=== PATIENT | female | born 1955 | race Caucasian/White ===

== ENCOUNTER → 2019-08-29 | Outpatient (CLI) | payer BC | LOC: LAB.O 14:11 | PROVIDERS: ATTEND Family Medicine | DX: I10 Essential (primary) hypertension (principal); R53.83 Other fatigue; E78.5 Hyperlipidemia, unspecified ==

== ENCOUNTER → 2019-09-20 | Outpatient (CLI) | payer BC ==
--- NOTE | 2019-09-21 16:06 | MAM ---
EXAM DESCRIPTION: 3D Screening BILATERAL : Digital Mammography. CLINICAL HISTORY: 64 years Female SCREENING . No complaints. No personal or family history of breast cancer. Menarche age 14. Childbirth none. Hysterectomy age 38. Currently on HRT. Lifetime risk of developing breast cancer (Tyrer-Cuzick model)(%): 6.6. COMPARISON: Baseline study at this facility. Prior studies not yet available. TECHNIQUE: Bilateral CC and MLO projection full-field images, digital tomosynthesis mammographic technique. Bilateral digital 2-D full-field MLO images. CAD available for 2-D images. FINDINGS: The breast parenchymal density pattern is: Almost entirely fatty. No skin thickening or nipple retraction. Bilateral benign solitary parenchymal calcifications. Bilateral axillary lymph nodes. Focal asymmetry versus architectural distortion subcutaneous upper outer quadrant of the middle third of the right breast. No focal, stellate mass or density, focal asymmetry , and no suspicious microcalcifications left breast. IMPRESSION: BI-RADS CATEGORY: 0 - INCOMPLETE- Need prior mammograms for comparison. FOLLOW-UP: Comparison with prior examination(s) when available. Written communication explaining the results and follow-up will be mailed to the patient and referring care provider. Electronically signed by: Valentín Diaz MD 09/21/2019 4:05 PM [facility]
== END ==
LOC: MAMMO 11:30
PROVIDERS: ATTEND Family Medicine
DX: Z12.31 Encounter for screening mammogram for malignant neoplasm of breast (principal)

== ENCOUNTER → 2019-10-19 | Outpatient (CLI) | payer BC ==
--- NOTE | 2019-10-23 10:10 | CT ---
Procedure: CT LUNG SCREENING Exam Date: October 19, 2019 Ordering Provider: Jeremiah Foster Clinical Indication: TOBACCO USE . Current cigarette smoker. 25 pack years. This patient meets eligibility criteria for low-dose CT lung cancer screening. Comparison: None. Technique: Using a multislice scanner, sequential helical axial imaging was obtained in the thorax, 2.5 mm thickness, 2.5 mm separation, from the level of the thoracic inlet through the lung bases without IV contrast. A low dose protocol was utilized for BMI greater than than 30: BMI: 30.7. CTDI: 2.92 mGy. 120. kVp. 75 mA. DLP 99.33 mGy-cm. 2D sagittal and coronal reconstructed images, 6.0 mm thickness, were obtained. This exam was performed according to our departmental dose optimization program which includes use of automated exposure control, adjustment of the mA and/or kV according to patient size and/or use of iterative reconstruction technique. Nodule measurements under 10 mm are given as mean value of 3 axes diameters. FINDINGS: Lungs and large airways: Lungs are well-inflated. Sporadic thickened septa bilaterally. No abnormal nodules and no masses. No focal infiltrates. Pleura and space: Negative. Mediastinum and michael: evaluation limited by low dose technique and lack of IV contrast. Unremarkable Heart and great vessels: Mild cardiomegaly. Calcification in the left main coronary artery. Chest wall, lower neck, axillae: Evaluation also limited by same factors as described above. Normal size axillary lymph nodes. Heterogeneous thyroid gland. Upper abdomen: Evaluation limited by low-dose technique. Partial gastrectomy with surgical hardware and small hiatal hernia. Gallbladder partially visualized. Splenic calcifications. No free air or free fluid. Osseous structures: Evaluation limited by low dose MIP technique. Minimal spondylosis in the lower mid levels. Arthrosis in the glenohumeral and sternoclavicular joints. IMPRESSION: No abnormal nodules and no masses. No focal infiltrates. Early senescent changes. Mild cardiomegaly. Calcification in the left main coronary artery.. [facility] Best Practice Recommendations: please see below for Lung RADS category and FOLLOW-UP.* *Lung RADS category Category 1S - No nodule or definitely benign nodules (probability of malignancy less than 1%). Follow-up: Continue annual screening with Low Dose Chest CT in 12 months. 2. Lung RADS Modifier S - Clinically Significant or Potentially Clinically Significant Findings (non lung cancer). Cardiomegaly is nonspecific finding. Electronically signed by: Valentín Diaz MD 10/23/2019 10:08 AM [facility]
== END ==
LOC: CT 13:43
PROVIDERS: ATTEND Family Medicine
DX: Z87.891 Personal history of nicotine dependence (principal); I10 Essential (primary) hypertension; I51.7 Cardiomegaly; I25.10 Atherosclerotic heart disease of native coronary artery without angina pectoris
CPT/HCPCS: 93005; G0297

== ENCOUNTER → 2020-01-02 | Outpatient (CLI) | payer BC ==
--- NOTE | 2020-01-02 12:03 | RAD ---
EXAM DESCRIPTION: Pelvis CLINICAL HISTORY: 64 years Female, PAIN IN RIGHT HIP COMPARISON: None. FINDINGS: There is no acute fracture or malalignment. Mild right hip joint space narrowing, the hip and sacroiliac joints are otherwise unremarkable. The pubic symphysis is anatomically aligned. There is no focal bone lesion or suspicious soft tissue abnormality. IMPRESSION: Mild degenerative changes in the right hip, otherwise unremarkable exam. Electronically signed by: Jude Maya MD 01/02/2020 12:01 PM CDT
--- NOTE | 2020-01-02 12:04 | RAD ---
EXAM DESCRIPTION: Hip,Right 2 Views CLINICAL HISTORY: 64 years Female, PAIN IN RIGHT HIP COMPARISON: None. FINDINGS: Two views of the right hip show no acute fracture or malalignment. [id number] right hip joint space narrowing, no focal bone lesion. No soft tissue abnormality. IMPRESSION: [id number] degenerative changes in the right hip. Electronically signed by: Jude Maya MD 01/02/2020 12:02 PM CDT
--- NOTE | 2020-01-02 12:05 | RAD ---
EXAM DESCRIPTION: Knee,Right Complete CLINICAL HISTORY: 64 years Female, PAIN IN RIGHT KNEE COMPARISON: None. FINDINGS: Three views of the right knee show no acute fracture or malalignment. No joint space narrowing or joint effusion. Small osteophytes arise from the superior and inferior patellar poles. IMPRESSION: Mild degenerative changes in the patellofemoral compartment, otherwise unremarkable exam. Electronically signed by: Jude Maya MD 01/02/2020 12:03 PM CDT
--- NOTE | 2020-01-02 12:05 | RAD ---
EXAM DESCRIPTION: Lumbar Spine,Flex/Ext CLINICAL HISTORY: 64 years Female, PAIN IN RIGHT HIP COMPARISON: None. FINDINGS: Flexion and extension views of the lumbar spine show no vertebral body fracture or subluxation. No dynamic instability. Degenerative disc disease at L5-S1 with less advanced degenerative changes elsewhere. IMPRESSION: Moderate to moderately advanced degenerative disc disease at L5-S1 with less advanced degenerative changes elsewhere in the lumbar spine. No dynamic instability. Electronically signed by: Jude Maya MD 01/02/2020 12:04 PM CDT
== END ==
LOC: RAD 10:05
PROVIDERS: ATTEND Family Medicine
DX: M17.11 Unilateral primary osteoarthritis, right knee (principal); M16.11 Unilateral primary osteoarthritis, right hip; M51.37 Other intervertebral disc degeneration, lumbosacral region

== ENCOUNTER → 2020-01-29 | Outpatient (CLI) | payer BC, OTHER ==
--- NOTE | 2020-01-30 10:31 | MRI ---
EXAM DESCRIPTION: Lumbar Spine w/o Contrast : Magnetic Resonance Imaging. CLINICAL HISTORY: low back pain COMPARISON: Lumbar spine flexion and extension January 02, 2020. TECHNIQUE: Multiplanar, multiple standard sequences, non contrast MRI, lumbar spine. FINDINGS: L5-S1: The disc is well visualized on axial T2 series 501, image 3. There is basically significantly decreased with moderate endplate reactive changes in the midline into the left of midline and disc spur complex posterolaterally encroaching on the right neural foramen and the right L5 nerve. Minimal posterior bulge. Degenerative hypertrophy of the posterior flavum ligaments and facet joints (canal elements) with AP canal diameter 10 mm. L4-L5: Disc desiccation with disc space preserved. Minimal posterior bulge. Degenerative hypertrophy of the canal elements more on the right. AP canal diameter 10 mm. Left mild foraminal narrowing and mild to moderate narrowing of the right foramen. L3-L4: Disc desiccation minimal with disc space preserved. Mild degenerative hypertrophy of the canal elements. AP canal diameter 11 mm. Bilateral foramina are patent. L2-L3: Normal signal in the disc with disc space preserved. Minimal degenerative hypertrophy of the canal elements. Mild canal narrowing. Bilateral foramina are patent. L1-L2: Disc desiccation anterior early endplate reactive changes with disc spur complex bulging. Tiny posterior bulge. Mild degenerative hypertrophy of the canal elements. Canal patent. Mild bilateral foraminal narrowing. T12-L1: Normal signal in the disc with disc space preserved. No posterior bulging. Mild degenerative hypertrophy of the canal elements. Canal and foramina are patent. Conus terminates at this level. T11-T12: Disc desiccation with small posterior bulge. Not touching the cord. Schmorl's node superior T12 endplate. Mild canal and bilateral foraminal narrowing. T10-T11 disc bulge abutting the cord. No scoliosis. Paravertebral soft tissues negative.. Distal cord normal signal and caliber. Normal marrow signal in the remaining vertebral bodies and the posterior elements. Vertebral bodies are not compressed at any level. IMPRESSION: 1. Multiple levels of disc desiccation. Anterior spondylosis bulging disc and disc space loss at L1-L2. 2. Significant disc space loss L5-S1 and left side moderate spondylosis with disc osteophyte encroachment on the foramen and the left L5 nerve. 3. Please see FINDINGS for description of other levels. Electronically signed by: Valentín Diaz MD 01/30/2020 10:30 AM CDT
== END ==
LOC: MRI 11:01
PROVIDERS: ATTEND Family Medicine
DX: M51.36 Other intervertebral disc degeneration, lumbar region (principal); M47.896 Other spondylosis, lumbar region; M47.897 Other spondylosis, lumbosacral region; M25.78 Osteophyte, vertebrae; M51.34 Other intervertebral disc degeneration, thoracic region; M51.44 Schmorl's nodes, thoracic region; M51.84 Other intervertebral disc disorders, thoracic region

== ENCOUNTER → 2020-07-08 | Outpatient (CLI) | payer MEDICARE, BC ==
--- NOTE | 2020-07-08 17:29 | RAD ---
EXAM DESCRIPTION: Hip,Right 2 Views CLINICAL HISTORY: pain in right hip COMPARISON: None. TECHNIQUE: 2 views right FINDINGS: The patient appears to be postsurgical removal of the right femoral neck and head. There is superior subluxation of the femoral shaft relation to the acetabulum. The acetabular roof is difficult to define. Mild sacroiliac joint arthritis is observed. IMPRESSION: 1. There is no definable right femoral neck and head nor superior acetabulum. 2. There is superior subluxation of the femur in relation to the acetabulum. Electronically signed by: Lokesh Rodgers MD 07/08/2020 5:27 PM [facility]
== END ==
LOC: YCFC.O 11:29
PROVIDERS: ATTEND Family Medicine
DX: S73.001A Unspecified subluxation of right hip, initial encounter (principal)

== ENCOUNTER → 2020-07-09 | Outpatient (CLI) | payer MEDICARE | LOC: YCFC.O 12:56 | PROVIDERS: ATTEND Family Medicine | DX: M89.8X5 Other specified disorders of bone, thigh (principal); M25.551 Pain in right hip ==

== ENCOUNTER → 2020-07-12 | Outpatient (CLI) | payer MEDICARE ==
--- NOTE | 2020-07-15 10:31 | MRI ---
MRI right hip without and with IV contrast INDICATION: Hip pain initial injury 8 months ago multiple falls TECHNIQUE: MRI right hip without and with IV contrast. 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 There is superior migration of the femur. The head and neck are destroyed to the level of the intertrochanteric region. Several osseous fragments are noted. There is also remodeling and destruction of the acetabulum. Marked thinning at the quadrilateral plate. There is a diffuse region of osteonecrosis of the left femoral head. Advanced degenerative disc disease L5-S1. Prominent fluid and synovitis in the right hip. Diffuse reactive edema in the proximal femur and acetabulum. Prominent fluid in the left hip as well with developing osteoarthrosis. Tendinopathy of the proximal hamstring tendons without detachment There is synovial enhancement in both hips right greater than left. IMPRESSION: Advanced destructive arthropathy right hip with primary differential considerations including advanced fragmented osteonecrosis or idiopathic rapidly destructive hip arthropathy versus neuropathic process or chronic infection less likely. Osteonecrosis left hip without end-stage collapse Bilateral reactive synovitis and hip fluid with enhancement Electronically signed by: Ousmane Butler MD 07/15/2020 10:29 AM [facility]
== END ==
LOC: MRI 09:00
PROVIDERS: ATTEND Orthopaedic Surgery
DX: M12.9 Arthropathy, unspecified (principal); M87.852 Other osteonecrosis, left femur; M65.851 Other synovitis and tenosynovitis, right thigh; M65.852 Other synovitis and tenosynovitis, left thigh; M25.451 Effusion, right hip; M25.452 Effusion, left hip

== ENCOUNTER → 2020-07-16 | Outpatient (CLI) | payer MEDICARE ==
--- NOTE | 2020-07-17 11:39 | CT ---
EXAM: Lower Extremity INDICATION: AVASCULAR NECROSIS OF HEAD OF FEMUR . Per patient questionnaire paperwork on recent MR from 07/12/2020, patient reports right hip pain after an injury 8 months ago with multiple falls since that time. No reported surgery. COMPARISON: MRI right hip with and without contrast 07/12/2020, right hip radiographs 07/08/2020 and 01/02/2020 TECHNIQUE: CT of the right hip was performed without IV contrast. Multiple axial images and multiplanar reconstructions were generated. This exam was performed according to our departmental dose-optimization program, which includes automated exposure control, adjustment of the mA and/or kV according to patient size and/or use of iterative reconstruction technique. FINDINGS: In concordance with the recent MRI findings, there is severe destructive arthropathy of the right hip. There is essentially complete absence of the right femoral head, with only a 2.2 x 1.0 cm ovoid bone fragment remaining in the acetabulum. There are a few scattered patchy ossific densities as well in the joint space. Patchy sclerosis is seen in the remaining portion of the femoral neck. Expansile remodeling of the acetabulum is also seen, with cortical irregularity and indistinctness at the superior margin of the destruction (reference sagittal series 602 image 59). Heterogeneous fluid and soft tissue thickening is seen at the hip joint. No apparent acute fracture. Diffuse osteopenia. Degenerative changes are noted at the partially visualized L5-S1 disc space. Unremarkable appearance of the visualized bowel loops in the pelvis. 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 Electronically signed by: Glenys Pretty MD 07/17/2020 11:38 AM [facility]
== END ==
LOC: CT 13:02
PROVIDERS: ATTEND Orthopaedic Surgery
DX: M87.851 Other osteonecrosis, right femur (principal); M12.9 Arthropathy, unspecified

== ENCOUNTER → 2020-07-30 | Outpatient (CLI) | payer MEDICARE, BC | LOC: LAB.O 11:24 | PROVIDERS: ATTEND Family Medicine | DX: R93.89 Abnormal findings on diagnostic imaging of other specified body structures (principal) ==